=== PATIENT | male | born 1990 | race Two or more races ===

== ENCOUNTER 2016-06-09 19:03 | Emergency (ER) | payer OTHER ==
[~2016-06-09] VITALS: Ht 172.7 cm; Wt 79.4 kg
[2016-06-09] MEDS ORDERED: OXYBUTYNIN CHLOR5 M1 ORAL (19:17)
[2016-06-09] MEDS ORDERED: COUMADIN2 MG ORAL (19:17)
[2016-06-09 19:24] VITALS: BP 89/57
[2016-06-09 19:53] LABS: BASOPHILS % (AUTO) 1.3 % (0.0-2.0); EOSINOPHILS % (AUTO) 2.8 % (0.0-3.0); MEAN CORPUSCULAR HEMOGLOBIN 31.4 PG (27.0-31.0); MEAN CORPUSCULAR HGB CONC 33.1 G/DL (32.0-36.0); MEAN CORPUSCULAR VOLUME 95 FL (80-99); MEAN PLATELET VOLUME 6.9 FL (6.5-10.1); NEUTROPHILS % (AUTO) 51.9 % (45.0-75.0); PLATELET COUNT 204 K/UL (150-450); RED CELL DISTRIBUTION WIDTH 12.5 % (11.6-14.8); WHITE BLOOD COUNT 6.7 K/UL (4.8-10.8)
[2016-06-09 19:54] LABS: INR 1.5 (0.9-1.1); PROTHROMBIN TIME 15.4 SEC (9.30-11.50)
[2016-06-09 19:59] LABS: TROPONIN I < 0.30 ng/mL (<=0.30)
[2016-06-09 20:00] LABS: ALANINE AMINOTRANSFERASE 27 U/L (3-41); ALBUMIN/GLOBULIN RATIO 1.5 (1.0-2.7); ANION GAP 17 (5-15); ASPARTATE AMINO TRANSFERASE 28 U/L (5-40); CALCIUM 8.8 mg/dL (8.6-10.2); CARBON DIOXIDE 24 mEQ/L (20-30); CHLORIDE 95 mEQ/L (98-107); CREATININE 0.5 mg/dL (0.7-1.2); GLOMERULAR FILTRATION RATE > 60 mL/min (>60); HEMOLYSIS 22; POTASSIUM 3.8 mEQ/L (3.4-4.9); SODIUM 136 mEQ/L (135-145); TOTAL PROTEIN 6.6 g/dL (6.6-8.7)
[2016-06-09 20:10] LABS: CKMB < 1.5 ng/mL (< 6.7)
[2016-06-09 21:34] VITALS: BP 116/80
[2016-06-09] MEDS ORDERED: Ketorolac 30mg Inj IV ONE (21:45)
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
[2016-06-09] MEDS ORDERED: ULTRAM50 MG ORAL (22:29)
[2016-06-09 22:39] VITALS: BP 116/80
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
--- NOTE | 2016-06-13 15:03 | Cardiology Report ---
APPROVED REPORT EKG Measurement Heart [id number] Normal sinus rhythm Possible Left atrial enlargement Borderline ECG
== END 2016-06-09 22:39 | disposition home or self-care (01) ==
LOC: EDBD 19:03 → EMR 19:33
DX: R07.9 Chest pain, unspecified (principal); G82.20 Paraplegia, unspecified; Z88.2 Allergy status to sulfonamides; Z86.718 Personal history of other venous thrombosis and embolism
CPT/HCPCS: 36415; 71010; 80053; 82550; 82553; 84484; 85025; 85610; 85730; 93005; 96374; 99284; J1885